=== PATIENT | female | born 2005 | race Caucasian/White ===

== ENCOUNTER 2024-05-16 18:48 | Emergency (ER) | payer BC, SELFPAY ==
[2024-05-16 18:50] VITALS: BP 121/83; PULSE 118; TEMP 37.2; O2SAT 96; BMI 54.1
--- NOTE | 2024-05-16 18:58 | CT_ITS ---
[address] [address] Patient Name: AC POWER MRN: [id number] date: 2005 Sex: F Assigned Patient Location: ER Current Patient Location: .[facility] Accession/Order Number: [id number] Exam Date: 05/16/2024 19:50 Report Date: 05/16/2024 21:04 At the request of: KADY MILLER Procedure: CT femur LT w con EXAMINATION: CT femur LT w con HISTORY: wound to medial thigh, post op COMPARISON: No relevant comparison available. TECHNIQUE: Multi-planar CT images were created without and/or with IV contrast according to examination type. Dose reduction techniques were achieved by using automated exposure control and/or adjustment of mA and/or kV according to patient size and/or use of iterative reconstruction technique. FINDINGS: BONES: Prior surgical repair of the superior and inferior pubic rami bilaterally and fusion of the symphysis. Fixation of the anterior medial wall of the left acetabulum. Surgical repair of the left femoral diaphysis the medullary jann and locking screws. 2 lag screws within the greater trochanter extending through the femoral neck. Single screw repair of the comminuted patella fractures. SOFT TISSUES: Soft tissue irregularity involving the distal medial thigh with large portion of absent skin and subcutaneous fat. Underlying edematous changes and small amount of free air extending from the site. Small separate fluid collection within the posterior subcutaneous fat at this level; likely seroma or hematoma. EFFUSION: None visible. OTHER: Negative. CT/CT femur LT w con IMPRESSION: 1. Surgical repair of osseous structures as detailed above. 2. Large medial thigh wound with loss of skin and subcutaneous fat. Underlying bruising/edema. Infectious etiology is felt less likely. 3. Small fluid collection within posterior subcutaneous fat just below the level of the large soft tissue wound suspected to represent a seroma or hematoma. Abscess cannot be excluded. Electronically authenticated by: LIANG MEDINA Date: 05/16/2024 21:04
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
[2024-05-16] MEDS: 0.9 % SODIUM CHLORIDE 1,000 ML 999 ML IV (19:43)
[2024-05-16] MEDS: ONDANSETRON PF 4 MG/2 ML VIAL IV (19:44)
[2024-05-16] MEDS: FENTANYL CITRATE/PF 100 MCG/2 ML VIAL 50 MCG IV ×2 (19:44→20:27)
[2024-05-16 19:48] LABS: Basophils Absolute Auto 0.1 10^3/uL (0.0-0.1); Basophils Percent Auto 0.5 % (0.2-2.0); Eosinophils Absolute Auto 0.2 10^3/uL (0.0-0.7); Eosinophils Percent Auto 1.7 % (0.9-7.0); Hematocrit 41.3 % (36.0-48.0); Immature Granulocytes Abs Auto 0.06 10^3/uL (0.00-0.03); Immature Granulocytes Pct Auto 0.6 % (0.0-0.5); Lymphocytes Absolute Auto 2.3 10^3/uL (1.2-3.8); Lymphocytes Percent Auto 23.3 % (20.5-60.0); Mean Corpuscular HGB Conc 31.5 g/dL (29.9-35.2); Mean Corpuscular Hemoglobin 28.1 pg (26.7-34.0); Mean Corpuscular Volume 89.2 fL (81.0-99.0); Mean Platelet Volume 8.3 fL (9.5-13.5); Monocytes Absolute Auto 0.6 10^3/uL (0.3-0.8); Monocytes Percent Auto 6.4 % (1.7-12.0); Neutrophils Absolute Auto 6.6 10^3/uL (1.4-6.5); Neutrophils Percent Auto 67.5 % (43.0-75.0); Platelet Count 454 10^3/uL (150-450); Red Blood Count 4.63 10^6/uL (4.20-5.40); Red Cell Distribution Width 13.9 % (11.0-15.0); White Blood Count 9.7 10^3/uL (4.0-11.0)
[2024-05-16 19:58] LABS: PCO2 VBG 41.7 mmHg (40.0-52.0); pH VBG 7.442 (7.330-7.430)
[2024-05-16 20:03] LABS: Alanine Aminotransferase 20 U/L (14-59); Albumin Globulin Ratio 0.6; Albumin Level 3.1 g/dL (3.4-5.0); Alkaline Phosphatase 90 U/L (46-116); Anion Gap 15.4; Aspartate Amino Transferase 34 U/L (15-37); BUN Creatinine Ratio 10.7; Bilirubin Total 0.4 mg/dL (0.2-1.0); C Reactive Protein 11.64 mg/dL (<=0.50); Calcium 9.6 mg/dL (8.5-10.1); Carbon Dioxide 27.9 mmol/L (21.0-32.0); Chloride 100 mmol/L (98-107); Estimated GFR (African America >60 (>=60 mL/min/1.73m^2); Estimated GFR (Non-African Ame >60 (>=60 mL/min/1.73m^2); Globulin 5.1 g/dL; Glucose 109 mg/dL (74-106); Potassium 3.3 mmol/L (3.5-5.1); Sodium 140 mmol/L (136-145); Total Protein 8.2 g/dL (6.4-8.2)
[2024-05-16 20:05] LABS: INR 1.04; Lactate/Lactic Acid 1.3 mmol/L (0.4-2.0)
[2024-05-16 20:12] LABS: Erythrocyte Sedimentation Rate 85 mm/hr (<=20)
[2024-05-16 20:38] VITALS: BP 107/66; PULSE 101; O2SAT 100
[2024-05-16] MEDS: OXYCODONE HCL/ACETAMINOPHEN 5MG/325MG 1 TAB PO (22:20)
[2024-05-16] MEDS: AMOXICILLIN/POT CLAV 875-125 MG TABLET 1 TAB PO (22:20)
== END 2024-05-16 23:35 | disposition home or self-care (01) ==
PROVIDERS: Physician Assistant; Emergency Provider Student in an Organized Health Care Education/Training Program; PCP Family Medicine
DX: S71.102A Unspecified open wound, left thigh, initial encounter (principal); X58.XXXA Exposure to other specified factors, initial encounter
CPT/HCPCS: 36415; 73701; 80053; 82800; 83605; 85025; 85610; 85652; 86140; 87040; 87070; 87075; 87150; 87186; 96374; 96375; 96376; 99285; J2405; J3010; Q9967